=== PATIENT | male | born 1995 | race Caucasian/White ===

== ENCOUNTER 2018-03-07 13:46 | Emergency (ER) | payer SELFPAY ==
[2018-03-07] MEDS ORDERED: DIPHENHYDRAMINE HCL 50 MG/ML VIAL IV ONE (14:08)
[2018-03-07] MEDS ORDERED: METOCLOPRAMIDE HCL INJ/PF 10 MG/2 ML SDV IV ONE (14:08)
--- NOTE | 2018-03-07 14:10 | ER Document Report ---
ED Medical Screen (RME) - General Chief Complaint: Nausea/Vomiting/Diarrhea Stated Complaint: DIARRHEA, NAUSEA, VOMITING Time Seen by Provider: 03/07/18 14:07 Mode of Arrival: Ambulatory Information source: Patient Notes: 22-year-old male presents with 2 days of headache, bilateral flank pain, nausea , vomiting and diarrhea. Patient describes the flank pain as an aching intermittent pain. Patient has had multiple episodes of nonbloody nonbilious vomiting. Patient has had multiple episodes of nonbloody diarrhea. He denies prior similar symptoms, sick contacts, recent hospitalizations or antibiotic use. Patient has tried Excedrin for his headache without relief. He has been unable to keep anything down for the last 2 days. I have greeted and performed a rapid initial assessment of this patient. A comprehensive ED assessment and evaluation of the patient including analysis of labs and imaging ( if obtained) and completion of medical decision making will be conducted by an additional ED provider. PHYSICAL EXAMINATION: GENERAL: Well-appearing, well-nourished and in no acute distress. HEAD: Atraumatic, normocephalic. EYES: Pupils equal round extraocular movements intact, conjunctiva are normal. ENT: Nares patent NECK: Normal range of motion LUNGS: No respiratory distress Musculoskeletal: Normal range of motion NEUROLOGICAL: Normal speech, normal gait. PSYCH: Normal mood, normal affect. SKIN: Warm, Dry, normal turgor, no rashes or lesions noted. - Related Data Allergies/Adverse Reactions: No Known Allergies Allergy (Verified 03/07/18 14:02) Past Medical History - Social History Chew tobacco use (# tins/day): No Frequency of alcohol use: Occasional Drug Abuse: None Renal/ Medical History: Denies: Hx Peritoneal Dialysis Past Surgical History: Reports: Hx Appendectomy Physical Exam - Vital signs Vitals: Temp Pulse Resp BP Pulse Ox 97.9 F 86 16 112/69 100 03/07/18 13:51 03/07/18 13:51 03/07/18 13:51 03/07/18 13:51 03/07/18 13:51 Course - Vital Signs Vital signs: Temp Pulse Resp BP Pulse Ox 97.9 F 86 16 112/69 100 03/07/18 13:51 03/07/18 13:51 03/07/18 13:51 03/07/18 13:51 03/07/18 13:51
[2018-03-07 15:00] LABS: APPEARANCE,URINE CLEAR; BILIRUBIN,URINE NEGATIVE (NEGATIVE); COLOR,URINE YELLOW; GLUCOSE, URINE NEGATIVE (NEGATIVE); KETONES,URINE NEGATIVE (NEGATIVE); LEUKOCYTE ESTERASE,URINE NEGATIVE (NEGATIVE); NITRITE,URINE NEGATIVE (NEGATIVE); PROTEIN,URINE NEGATIVE (NEGATIVE); URINE SPECIFIC GRAVITY 1.008; UROBILINOGEN,URINE NEGATIVE mg/dL (<2.0)
[2018-03-07 16:15] LABS: ABSOLUTE MONOCYTES (AUTO) 0.6 10^3/uL (0.1-1.4); ABSOLUTE NEUT (AUTO) 3.1 10^3/uL (1.7-8.2); BASOPHILS % (AUTO) 0.3 % (0-2); EOSINOPHILS % (AUTO) 0.3 % (0-6); HEMATOCRIT 47.3 % (37.9-51.0); HEMOGLOBIN 16.6 g/dL (13.5-17.0); LYMPHOCYTES % (AUTO) 21.1 % (13-45); MEAN CORPUSCULAR HEMOGLOBIN 30.4 pg (27.0-33.4); MEAN CORPUSCULAR VOLUME 87 fl (80-97); MONOCYTES % (AUTO) 12.2 % (3-13); PLATELET COUNT 133 10^3/uL (150-450); RED BLOOD COUNT 5.45 10^6/uL (4.35-5.55); RED CELL DISTRIBUTION WIDTH 13.1 % (11.5-14.0); SEGMENTED NEUTROPHILS % (AUTO) 66.1 % (42-78); TOTAL CELLS COUNTED % (AUTO) 100 %; WHITE BLOOD COUNT 4.7 10^3/uL (4.0-10.5)
[2018-03-07 16:41] LABS: ALANINE AMINOTRANSFERASE 42 U/L (21-72); ALBUMIN 4.7 g/dL (3.5-5.0); ALKALINE PHOSPHATASE 56 U/L (38-126); ANION GAP 15 (5-19); ASPARTATE AMINO TRANSFERASE 37 U/L (17-59); BILIRUBIN,DIRECT 0.3 mg/dL (0.0-0.4); BILIRUBIN,TOTAL 1.1 mg/dL (0.2-1.3); BLOOD UREA NITROGEN 16 mg/dL (7-20); CALCIUM 9.2 mg/dL (8.4-10.2); CARBON DIOXIDE 27 mmol/L (22-30); CHLORIDE 101 mmol/L (98-107); GLUCOSE 82 mg/dL (75-110); LIPASE 37.1 U/L (23-300); POTASSIUM 3.7 mmol/L (3.6-5.0); TOTAL PROTEIN 7.4 g/dL (6.3-8.2)
[2018-03-07] MEDS ORDERED: KETOROLAC TROMETHAMINE INJ/PF 30 MG/1 ML SDV IV ONE (16:56)
--- NOTE | 2018-03-07 16:59 | ER Document Report ---
ED GI/ - General Chief Complaint: Nausea/Vomiting/Diarrhea Stated Complaint: DIARRHEA, NAUSEA, VOMITING Time Seen by Provider: 03/07/18 14:07 Mode of Arrival: Ambulatory Information source: Patient Notes: Patient is a 22-year-old male who presents to the ER today for 2 days of nausea , vomiting, watery diarrhea and abdominal cramping. Patient also complains of bilateral lower back pain. He admits to dysuria. He denies any hematuria, history of kidney stones, fever but admits to chills and body aches. Patient states his abdominal cramping gets worse after episodes of vomiting or diarrhea. - Related Data Allergies/Adverse Reactions: No Known Allergies Allergy (Verified 03/07/18 14:02) Past Medical History - General Information source: Patient - Social History Smoking Status: Never Smoker Chew tobacco use (# tins/day): No Frequency of alcohol use: Occasional Drug Abuse: None Family History: Reviewed & Not Pertinent Patient has suicidal ideation: No Patient has homicidal ideation: No Renal/ Medical History: Denies: Hx Peritoneal Dialysis Past Surgical History: Reports: Hx Appendectomy Review of Systems - Review of Systems Constitutional: See HPI EENT: No symptoms reported Cardiovascular: No symptoms reported Respiratory: No symptoms reported Gastrointestinal: See HPI Genitourinary: No symptoms reported Male Genitourinary: No symptoms reported Musculoskeletal: No symptoms reported Skin: No symptoms reported Hematologic/Lymphatic: No symptoms reported Neurological/Psychological: No symptoms reported Physical Exam - Vital signs Vitals: Temp Pulse Resp BP Pulse Ox 97.9 F 86 16 112/69 100 03/07/18 13:51 03/07/18 13:51 03/07/18 13:51 03/07/18 13:51 03/07/18 13:51 - Notes Notes: PHYSICAL EXAMINATION: GENERAL: Mildly ill-appearing, but in no acute distress. HEAD: Atraumatic, normocephalic. EYES: Pupils equal round and reactive to light, extraocular movements intact, sclera anicteric, conjunctiva are normal. NECK: Normal range of motion, supple without lymphadenopathy LUNGS: CTAB and equal. No wheezes rales or rhonchi. HEART: Regular rate and rhythm without murmurs ABDOMEN: Soft, no tenderness. No guarding, no rebound BACK: no vertebral tenderness, normal ROM GI/: no CVA tenderness EXTREMITIES: Normal range of motion, no pitting edema. No cyanosis. NEUROLOGICAL: Cranial nerves grossly intact. Normal sensory/motor exams. PSYCH: Normal mood, normal affect. SKIN: Warm, Dry, normal turgor, no rashes or lesions noted Course - Re-evaluation Re-evalutation: 03/07/18 16:57 Lab work is unremarkable today including a normal white blood cell count, urinalysis negative for infection or blood. Patient feels better after Zofran and Toradol, some IV fluids. Patient has a benign abdominal exam today no CVA tenderness. Will treat for viral syndrome at this time. - Vital Signs Vital signs: Temp Pulse Resp BP Pulse Ox 98.8 F 62 19 106/67 96 03/07/18 17:19 03/07/18 17:19 03/07/18 17:19 03/07/18 17:19 03/07/18 17:19 - Laboratory Result Diagrams: 03/07/18 16:05 03/07/18 16:05 Laboratory results interpreted by me: 03/07/18 16:05 Plt Count 133 L Discharge - Discharge Clinical Impression: Nausea vomiting and diarrhea Low back pain Qualifiers: Chronicity: acute Back pain laterality: bilateral Sciatica presence: without sciatica Qualified Code(s): M54.5 - Low back pain Condition: Stable Disposition: HOME, SELF-CARE Instructions: Diarrhea, Nonspecific ([facility]), Viral Syndrome ([facility]), Vomiting ([facility]) Additional Instructions: Return immediately for any new or worsening symptoms. Follow up with primary care provider, call tomorrow to make followup appointment. Drink plenty of water. Prescriptions: Ondansetron [Zofran Odt 4 mg Tablet] 1 - 2 tab PO Q4HP PRN #20 tab.rapdis PRN Reason: Dicyclomine HCl [Bentyl 20 mg Tablet] 20 mg PO Q8 PRN #15 tablet PRN Reason: Forms: Return to Work
[2018-03-07 17:21] VITALS: BP 106/67
== END 2018-03-07 17:20 | disposition home or self-care (01) ==
LOC: ER 13:46
DX: R11.2 Nausea with vomiting, unspecified (principal); B34.9 Viral infection, unspecified; M54.5 Low back pain; R19.7 Diarrhea, unspecified; R10.9 Unspecified abdominal pain; R30.0 Dysuria; R68.83 Chills (without fever); Z90.49 Acquired absence of other specified parts of digestive tract
CPT/HCPCS: 99284; 96374; 96375; 36415; 83690; 85025; 80053; 81001; J1200; J1885; J2765

== ENCOUNTER 2018-06-01 23:42 | Emergency (ER) | payer OTHER ==
--- NOTE | 2018-06-02 00:35 | ER Document Report ---
ED General - General Chief Complaint: Finger Injury Stated Complaint: FINGER INJURY Time Seen by Provider: 06/02/18 00:25 Mode of Arrival: Ambulatory Information source: Patient Notes: 22-year-old male with no reported past medical history presents with complaint of right index finger pain and swelling. Patient states that 5 days prior to arrival he cut his finger on a metal box. He states that yesterday he noticed swelling of his knuckle and today it became more painful with movement. Patient denies any fever, chills, nausea, vomiting, history of MRSA. Patient's tetanus is up-to-date. TRAVEL OUTSIDE OF THE [place] IN LAST 30 DAYS: No - HPI Onset: Other Onset/Duration: Gradual, Persistent Quality of pain: Achy Severity: Mild Associated symptoms: denies: Body/muscle aches, Chest pain, Fever, Nausea, Vomiting Exacerbated by: Movement Relieved by: Remaining still Similar symptoms previously: No Recently seen / treated by doctor: No - Related Data Allergies/Adverse Reactions: No Known Allergies Allergy (Verified 03/07/18 14:02) Past Medical History - General Information source: Patient - Social History Smoking Status: Never Smoker Frequency of alcohol use: None Drug Abuse: None Lives with: Family Family History: Reviewed & Not Pertinent Patient has suicidal ideation: No Patient has homicidal ideation: No - Medical History Medical History: Negative Renal/ Medical History: Denies: Hx Peritoneal Dialysis Past Surgical History: Reports: Hx Appendectomy Review of Systems - Review of Systems Notes: REVIEW OF SYSTEMS: CONSTITUTIONAL : Denies fever, chills, or sweats. Denies recent illness. Denies weight loss, recent hospitalizations. EENT: Denies visual changes, eye pain. Denies sore throat, oral lesions, difficulty swallowing. CARDIOVASCULAR: Denies chest pain. Denies palpitations. Denies lower extremity edema. RESPIRATORY: Denies cough. Denies shortness of breath, wheezing. GASTROINTESTINAL: Denies abdominal pain or distention. Denies nausea, vomiting , or diarrhea. Denies blood in vomitus, stools, or per rectum. Denies black, tarry stools. Denies constipation. GENITOURINARY: Denies difficulty urinating, painful urination, frequency, blood in urine, testicular pain or penile discharge. MUSCULOSKELETAL: Denies back or neck pain or stiffness. SKIN: Denies rash, lesions or sores. HEMATOLOGIC : Denies easy bruising or bleeding. LYMPHATIC: Denies swollen glands. NEUROLOGICAL: Denies confusion or altered mental status. Denies loss of consciousness. Denies dizziness or lightheadedness. Denies headache. Denies weakness or paralysis. Denies problems difficulty with ambulation, slurred speech. Denies sensory loss, numbness, or tingling. Denies seizures. PSYCHIATRIC: Denies anxiety or stress. Denies depression, suicidal ideation, or Physical Exam - Vital signs Vitals: Temp Pulse Resp BP Pulse Ox 97.5 F 60 16 117/60 99 06/01/18 23:44 06/01/18 23:44 06/01/18 23:44 06/01/18 23:44 06/01/18 23:44 - Notes Notes: PHYSICAL EXAMINATION: GENERAL: Well-appearing, well-nourished and in no acute distress. HEAD: Atraumatic, normocephalic. EYES: Pupils equal round and reactive to light, extraocular movements intact, sclera anicteric, conjunctiva are normal. ENT: Nares patent, oropharynx clear without exudates. Moist mucous membranes. NECK: Normal range of motion, supple without lymphadenopathy LUNGS: Breath sounds clear to auscultation bilaterally and equal. No wheezes rales or rhonchi. HEART: Regular rate and rhythm without murmurs ABDOMEN: Soft, nontender, nondistended abdomen. No guarding, no rebound. No masses appreciated. Musculoskeletal: Normal range of motion, no pitting or edema. No cyanosis. Swelling without erythema, fluctuance or induration over the right index finger. Sensation intact, cap refill less than 2 seconds, full range of motion with minimal pain. NEUROLOGICAL: Cranial nerves grossly intact. Normal speech, normal gait. Normal sensory, motor exams PSYCH: Normal mood, normal affect. SKIN: Warm, Dry, normal turgor, no rashes or lesions noted. Course - Re-evaluation Re-evalutation: 06/02/18 01:38 Hand X-Ray 06/02/18 00:33 FINDINGS/IMPRESSION: Normal bone mineralization. No acute fracture or malalignment. Joint spaces are preserved. Diffuse soft tissue swelling of the index finger. No radiopaque foreign body is identified. 22-year-old male presents with complaint of right index finger pain and swelling. He states that last week he cut his finger on a metal box. Patient' s tetanus is up-to-date. He denies any fever, chills, nausea, vomiting. Vital signs stable upon arrival. Patient does not appear toxic or dehydrated. He is in no acute distress. Previous medical records and nursing notes reviewed. X- ray obtained and showed diffuse soft tissue swelling of the index vein GERD without retained foreign body. Bedside ultrasound was performed to assess for fluid collection and there was no anechoic fluid collection appreciated. Patient does have full range of motion, no erythema but does have significant swelling over the PIP. Patient will be started on Keflex and Bactrim. Referral to orthopedic surgery was provided. Patient was evaluated and treated as appropriate for the patient's presenting symptoms and complaint, with consideration of any critical or life threatening conditions that may be associated with their obtained history and exam as noted above. All results were discussed with patient. Patient provided the opportunity to ask questions, and express concerns. Patient was educated on treatments based on their presumed diagnosis as noted above. At this time we will discharge the patient with return precautions and follow-up recommendations. Verbal discharge instructions given a the bedside. Medication warnings reviewed. Patient is in agreement with this plan and has verbalized understanding of return precautions. After careful consideration I feel that that patient can be safely discharged from the emergency department, they were advised to followup with a primary care physician in 2-3 days. Dictation on this chart was performed using voice recognition software and may result in unintended grammatical, spelling, syntax or errors. - Vital Signs Vital signs: Temp Pulse Resp BP Pulse Ox 97.5 F 60 16 117/60 99 06/01/18 23:44 06/01/18 23:44 06/01/18 23:44 06/01/18 23:44 06/01/18 23:44 - Diagnostic Test Radiology reviewed: Image reviewed, Reports reviewed Procedures - Ultrasound/Bedside Ultrasound/Bedside Time completed: 01:30 - Soft tissue ultrasound was performed of the right index finger and is without an anechoic fluid collection. No cobblestoning. See attached images. Discharge - Discharge Clinical Impression: Localized soft tissue swelling Finger joint swelling Qualifiers: Laterality: right Qualified Code(s): M25.441 - Effusion, right hand Laceration of right index finger Qualifiers: Encounter type: initial encounter Damage to nail status: without damage Foreign body presence: without foreign body Qualified Code(s): S61.210A - Laceration without foreign body of right index finger without damage to nail, initial encounter Condition: Good Disposition: HOME, SELF-CARE Instructions: Sprained Finger ([facility]), Cellulitis ([facility]) Prescriptions: Cephalexin Monohydrate [Keflex 500 mg Capsule] 500 mg PO BID 10 Days #20 capsule Sulfamethoxazole/Trimethoprim [Bactrim Ds Tablet] 1 each PO BID 7 Days #14 tablet Forms: Smoking Cessation Education Referrals: SRIRAM DANGELO DO [ACTIVE STAFF] - 06/07/18
--- NOTE | 2018-06-02 00:50 | RADIOLOGY REPORT (SQ) ---
3 VIEWS OF THE RIGHT HAND HISTORY: Swelling right index finger. COMPARISON: None. FINDINGS/IMPRESSION: Normal bone mineralization. No acute fracture or malalignment. Joint spaces are preserved. Diffuse soft tissue swelling of the index finger. No radiopaque foreign body is identified.
[2018-06-02] MEDS ORDERED: SULFAMETHOXAZOLE/TRIMETHOPRIM 800-160 MG TABLET PO ONE (01:34)
[2018-06-02] MEDS ORDERED: CEPHALEXIN 500 MG CAPSULE PO ONE (01:34)
[2018-06-02 01:46] VITALS: BP 119/66
== END 2018-06-02 02:00 | disposition home or self-care (01) ==
LOC: ER 23:42
DX: S61.210A Laceration without foreign body of right index finger without damage to nail, initial encounter (principal); M25.441 Effusion, right hand; M79.644 Pain in right finger(s); W22.8XXA Striking against or struck by other objects, initial encounter
CPT/HCPCS: 99283

== ENCOUNTER 2018-06-12 16:47 | Emergency (ER) | payer OTHER ==
[2018-06-12 16:55] VITALS: BP 129/55
[2018-06-12] MEDS ORDERED: TETRACAINE HCL 0.5% OPH SOLN 4 ML OU ONE (17:19)
--- NOTE | 2018-06-12 18:43 | ER Document Report ---
HPI - HPI Pain Level: 4 - EENT EENT: REPORTS: Eye problems - R Eye Pain <MICHELLE WHITMORE - Last Filed: 06/12/18 19:02> Past Medical History - Social History Smoking Status: Unknown if Ever Smoked Family History: Reviewed & Not Pertinent Patient has suicidal ideation: No Patient has homicidal ideation: No Renal/ Medical History: Denies: Hx Peritoneal Dialysis Past Surgical History: Reports: Hx Appendectomy <MICHELLE WHITMORE - Last Filed: 06/12/18 19:02> Vertical Provider Document - INFECTION CONTROL TRAVEL OUTSIDE OF THE [place] IN LAST 30 DAYS: No <MICHELLE WHITMORE - Last Filed: 06/12/18 19:02> Course - Vital Signs Vital signs: Temp Pulse Resp BP Pulse Ox 97.9 F 70 20 129/55 H 99 06/12/18 16:54 06/12/18 16:54 06/12/18 16:54 06/12/18 16:54 06/12/18 16:54 <MICHELLE WHITMORE - Last Filed: 06/12/18 19:02> - Vital Signs Vital signs: Temp Pulse Resp BP Pulse Ox 97.9 F 70 20 129/55 H 99 06/12/18 16:54 06/12/18 16:54 06/12/18 16:54 06/12/18 16:54 06/12/18 16:54 <MECHELLE JO - Last Filed: 06/12/18 21:08> Procedures - Eye Procedure Right Notes: 06/12/18 21:06 Discussed with patient bedside for removal of foreign body. Note was reviewed explanation of the procedure of removing the foreign body was explained to the patient patient gave verbal consent. Patient had a foreign body at the 2 o'clock position just above the pupil. Tetracaine was instilled. Using 18-gauge needle a was able to gently scrape the foreign body loose from the cornea unfortunately was unable to pharmacy picking technician the foreign body with Q-tip after multiple tries the patient did blink and has significant tearing we were able to find a look to be a foreign body on the side of the patient's face this was removed with a Q-tip. Examination and lid eversion upper and lower was also performed showing no retained foreign body I did restain the patient with floor seen showing no Salome sign minimal corneal abrasion. Patient was given pain medication and eyedrops patient tolerated procedure well <MECHELLE JO - Last Filed: 06/12/18 21:08> Discharge <MYRANDAMICHELLE - Last Filed: 06/12/18 19:02> <MECHELLE JO - Last Filed: 06/12/18 21:08> - Discharge Clinical Impression: Corneal foreign body Qualifiers: Encounter type: initial encounter Laterality: left Qualified Code(s): T15.02XA - Foreign body in cornea, left eye, initial encounter Condition: Stable Disposition: HOME, SELF-CARE Additional Instructions: Corneal Foreign Body You had a particle on the cornea of your eye. It's been removed, but your eye may be irritated until complete healing occurs. If a metal foreign body was imbedded in the eye, rust may develop in the cornea. If all the rust can't be removed at first, it can be removed at your follow-up visit. Following removal of a corneal foreign body, the usual treatment is to place antibiotics in the eye. If the eye is severely irritated, the pupil may be dilated to ease the pain. In addition, pain medication may be necessary. A follow-up visit is usually scheduled to assure healing. Do not drive or operate machinery until you have the full use of both your eyes. Healing of the area where the particle was embedded takes one to three days. If eye pain becomes severe, or if there is purulent drainage, eye swelling , or decreasing vision, call the doctor or return at once for re-evaluation. Please use the antibiotics, apply 2 drops to the affected eye every 3-6 hours for the next 7-10. Return to the emergency department if you develop worsening pain or you develop purulent drainage, eye swelling or decreasing vision. Follow-up with ophthalmology in the next 2-3 days for a follow-up. Prescriptions: Hydrocodone/Acetaminophen [Hydrocodon-Acetaminophen 5-325] 1 each PO Q4H PRN #8 tablet PRN Reason: Referrals: JOZEF HICKMAN MD [ACTIVE STAFF] - Follow up as needed
[2018-06-12] MEDS ORDERED: POLYMYXIN B SULFATE/TMP OPH SOLN (10 ML/ER DISP) OD PRN (18:50)
[2018-06-12] MEDS ORDERED: HYDROCODONE/ACETAMINOPHEN 5-325 MG (6 TAB/ER DISP) PO PRN (19:02)
== END 2018-06-12 19:11 | disposition home or self-care (01) ==
LOC: ER 16:47
DX: T15.01XA Foreign body in cornea, right eye, initial encounter (principal); X58.XXXA Exposure to other specified factors, initial encounter
CPT/HCPCS: 99283; 65220; J3490 ×2